=== PATIENT | female | born 1990 | race American Indian/Alaskan Native ===

== ENCOUNTER 2019-02-10 17:21 | Emergency (ER) | payer SELFPAY ==
[~2019-02-10] VITALS: Ht 170.2 cm; Wt 53.5 kg
[2019-02-10] MEDS ORDERED: normal saline 1000ML IV soln IVB ONE (18:05)
[2019-02-10] MEDS ORDERED: ondansetron/PF 4mg/2ml inj IV ONE (18:05)
[2019-02-10 18:39] LABS: BASOPHILS # (AUTO) 0.1 X10'3 (0-0.2); BASOPHILS % (AUTO) 1.2 % (0-1); EOSINOPHILS # (AUTO) 0.1 X10'3 (0-0.9); EOSINOPHILS % (AUTO) 2.1 % (0-6); HEMATOCRIT 36.6 % (35.0-45.0); HEMOGLOBIN 12.7 g/dl (12.0-16.0); LYMPHOCYTES # (AUTO) 2.2 X10'3 (1.1-4.8); LYMPHOCYTES % (AUTO) 34.6 % (21-51); MEAN CORPUSCULAR HEMOGLOBIN 29.1 PG (27.0-31.0); MEAN CORPUSCULAR HGB CONC 34.7 g/dL (33.0-36.5); MEAN CORPUSCULAR VOLUME 83.7 FL (78-98); MEAN PLATELET VOLUME 8.2 FL (7.4-10.4); MONOCYTES # (AUTO) 0.6 X10'3 (0-0.9); MONOCYTES % (AUTO) 9.4 % (2-12); NEUTROPHILS # (AUTO) 3.4 X10'3 (1.8-7.7); NEUTROPHILS % (AUTO) 52.7 % (42-75); PLATELET COUNT 295 X10'3 (140-440); RED BLOOD COUNT 4.38 X10'6 (4.20-5.60); RED CELL DISTRIBUTION WIDTH 14.3 % (11.5-14.5); WHITE BLOOD COUNT 6.4 X10'3 (4.5-11.0)
--- NOTE | 2019-02-10 18:59 | NUR ---
UNABLE TO OBTAIN VIABLE ACCESS OF A VEIN AT THIS TIME; MULTIPLE ATTEMPTS BY 4 NURSES. PT NOW DECLINES TO BE STUCK AGAIN. SMALL AMOUNT OF BLOOD SENT TO LAB CLOTTED AND LAB IS UNABLE TO USE. PT GIVEN ROOM TEMP WATER TO SIP SLOWLY.
--- NOTE | 2019-02-10 19:36 | NUR ---
Patient had several IV attempts from various other nurses unsuccessfully. Blood was drawn but the CMP was not a usable sample to check lab values. Patient refuses to allow me to attempt an IV start to provide fluids, zofran, and collect CMP. Patient has consumed approximately 2L of water PO with no vomiting. Dr. Carrizales notified.
[2019-02-10 19:37] VITALS: BP 108/75
== END 2019-02-10 19:39 | disposition home or self-care (01) ==
LOC: ER 17:23
DX: E86.0 Dehydration (principal); Z86.73 Personal history of transient ischemic attack (TIA), and cerebral infarction without residual deficits
CPT/HCPCS: 36415; 71045; 80053; 85025; 99284

== ENCOUNTER 2019-02-13 01:17 | Emergency (ER) | payer MEDICAID, OTHER ==
[~2019-02-13] VITALS: Ht 170.2 cm; Wt 51.0 kg
[2019-02-13 05:07] VITALS: BP 108/57
== END 2019-02-13 05:09 | disposition home or self-care (01) ==
LOC: ER 01:18
DX: R06.02 Shortness of breath (principal); Z86.73 Personal history of transient ischemic attack (TIA), and cerebral infarction without residual deficits
CPT/HCPCS: 99283